=== PATIENT | male | born 1975 | race Two or more races ===

== ENCOUNTER 2018-08-29 22:40 | Emergency (ER) | payer SELFPAY ==
[~2018-08-29] VITALS: Ht 170.2 cm; Wt 90.7 kg
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
[2018-08-29 23:18] VITALS: BP 150/89
[2018-08-29] MEDS ORDERED: ACETAMINOPHEN-1 EAC1 ORAL (23:56)
[2018-08-29] MEDS ORDERED: IBUPROFEN600 MG ORAL (23:56)
[2018-08-30 00:04] VITALS: BP 140/80
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
== END 2018-08-30 | disposition home or self-care (01) ==
LOC: EMR 22:58
DX: S06.0X0A Concussion without loss of consciousness, initial encounter (principal); S00.81XA Abrasion of other part of head, initial encounter; Y08.89XA Assault by other specified means, initial encounter; Y92.9 Unspecified place or not applicable
CPT/HCPCS: 70450; 99284

== ENCOUNTER 2020-02-29 18:20 | Emergency (ER) | payer SELFPAY ==
[~2020-02-29] VITALS: Ht 167.6 cm; Wt 90.7 kg
[~2020-02-29 18:20] MED LIST: ACETAMINOPHEN-1 EAC1 ORAL; IBUPROFEN600 MG ORAL
--- NOTE | 2020-02-29 19:08 | NUR ---
ED Nurse Note: Pt walked into ED from tent outside. Pt came for insomniax3 nights. Pt also has stuffy nose, PA aware and states no need for iso right now. Pt BP 185/102, PA aware. Pt set up on monitor. Blood sent down to lab. Pt is alert and orientedx4, amb.
[2020-02-29 19:10] VITALS: BP 185/102
[2020-02-29 19:23] LABS: BASOPHILS % (AUTO) 1.3 % (0.0-2.0); EOSINOPHILS % (AUTO) 8.6 % (0.0-3.0); HEMATOCRIT 41.5 % (42.0-52.0); HEMOGLOBIN 12.5 G/DL (14.2-18.0); LYMPHOCYTES % (AUTO) 31.1 % (20.0-45.0); MEAN CORPUSCULAR VOLUME 60 FL (80-99); MONOCYTES % (AUTO) 6.4 % (1.0-10.0); NEUTROPHILS % (AUTO) 52.6 % (45.0-75.0); PLATELET COUNT 288 K/UL (150-450); RED BLOOD COUNT 6.96 M/UL (4.70-6.10); RED CELL DISTRIBUTION WIDTH 14.2 % (11.6-14.8); WHITE BLOOD COUNT 9.6 K/UL (4.8-10.8)
--- NOTE | 2020-02-29 19:41 | Emergency Room Report ---
History of Present Illness General Chief Complaint: Hypertension Source: Patient Present Illness HPI Patient is a 44-year-old male presents after increased nasal congestion as well as insomnia. Patient has history of insomnia in the past. He reports having nasal congestion over the past few days. Denies any cough. Denies any fever. Denies any sick contacts. Not been having any leg pain or swelling. Reports having elevated blood pressure on previous checks. Denies any chest discomfort. Reports having some shortness of breath. Allergies: Coded Allergies: No Known Allergies (Unverified , 08/29/18) COVID-19 Screening Contact w/high risk pt: No Recent Travel to affected area: No Experienced COVID-19 symptoms?: Yes COVID-19 symptoms experienced: Runny Nose Patient History Past Medical History: see triage record Reviewed Nursing Documentation: PMH: Agreed; PSxH: Agreed Nursing Documentation-PMH Past Medical History: No Stated History Review of Systems All Other Systems: negative except mentioned in HPI Physical Exam Vital Signs Date Time Temp Pulse Resp B/P (MAP) Pulse Ox O2 Delivery O2 Flow Rate FiO2 02/29/20 18:51 98.2 76 20 191/122 (145) 96 Room Air 02/29/20 19:10 99 Sp02 EP Interpretation: reviewed, normal General Appearance: normal inspection, well appearing, no apparent distress, alert, GCS 15 Head: atraumatic ENT: normal ENT inspection, hearing grossly normal, normal voice Neck: normal inspection, full range of motion, supple, no bony tend Respiratory: normal inspection, lungs clear, normal breath sounds, no respiratory distress, no retraction, no wheezing Cardiovascular #1: regular rate, rhythm, no edema Gastrointestinal: normal inspection, normal bowel sounds, non tender, soft, no guarding, no hernia Genitourinary: no CVA tenderness Musculoskeletal: normal inspection, back normal, normal range of motion Neurologic: alert, motor strength/tone normal, 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 Differential diagnosis include was not limited to hypertensive crisis, pneumonia, coronavirus infection, CHF among others. Because of complexity of patient's case laboratory tests and imaging studies were ordered. EKG interpreted by me showed normal sinus rhythm with a rate of [address] changes. Nonspecific T wave changes were noted. Patient is given medications for blood pressure. Patient noted to have improvement of blood pressure over time. Patient was reassessed and was noted to have improvement in symptoms. He was given prescription for Benadryl as well as for Norvasc. He is advised to monitor his blood pressure prior to taking medications. He was advised to return if worse. The patient is advised to follow up with primary care doctor in 1-2 days. Patient is advised to return if any worsening condition or if any changes in status that are concerning. This report is dictated with [employer] information and data architect analyst software which may occasionally lead to discrepancies related to use of this software. Labs Test 02/29/20 19:05 White Blood Count 9.6 K/UL (4.8-10.8) Red Blood Count 6.96 M/UL (4.70-6.10) Hemoglobin 12.5 G/DL (14.2-18.0) Hematocrit 41.5 % (42.0-52.0) Mean Corpuscular Volume 60 FL (80-99) Mean Corpuscular Hemoglobin 18.0 PG (27.0-31.0) Mean Corpuscular Hemoglobin Concent 30.2 G/DL (32.0-36.0) Red Cell Distribution Width 14.2 % (11.6-14.8) Platelet Count 288 K/UL (150-450) Mean Platelet Volume 9.0 FL (6.5-10.1) Neutrophils (%) (Auto) 52.6 % (45.0-75.0) Lymphocytes (%) (Auto) 31.1 % (20.0-45.0) Monocytes (%) (Auto) 6.4 % (1.0-10.0) Eosinophils (%) (Auto) 8.6 % (0.0-3.0) Basophils (%) (Auto) 1.3 % (0.0-2.0) Sodium Level 142 MMOL/L (136-145) Potassium Level 3.8 MMOL/L (3.5-5.1) Chloride Level 104 MMOL/L (98-107) Carbon Dioxide Level 28 MMOL/L (21-32) Anion Gap 10 mmol/L (5-15) Blood Urea Nitrogen 16 mg/dL (7-18) Creatinine 1.2 MG/DL (0.55-1.30) Estimat Glomerular Filtration Rate > 60 mL/min (>60) Glucose Level 88 MG/DL (74-106) Calcium Level 9.2 MG/DL (8.5-10.1) Total Bilirubin 0.3 MG/DL (0.2-1.0) Aspartate Amino Transf (AST/SGOT) 16 U/L (15-37) Alanine Aminotransferase (ALT/SGPT) 32 U/L (12-78) Alkaline Phosphatase 61 U/L (46-116) Troponin I 0.000 ng/mL (0.000-0.056) Pro-B-Type Natriuretic Peptide 11 pg/mL (0-125) Total Protein 7.8 G/DL (6.4-8.2) Albumin 3.9 G/DL (3.4-5.0) Globulin 3.9 g/dL Albumin/Globulin Ratio 1.0 (1.0-2.7) EKG Diagnostic Results Rate: normal Rhythm: NSR ST Segments: no acute changes Last Vital Signs Date Time Temp Pulse Resp B/P (MAP) Pulse Ox O2 Delivery O2 Flow Rate FiO2 02/29/20 19:22 71 179/118 02/29/20 19:10 98.2 18 99 Room Air 02/29/20 19:10 99 Status: improved Disposition: HOME, SELF-CARE Condition: Stable Scripts Amlodipine Besylate (Norvasc) 5 Mg Tablet 5 MG ORAL DAILY, #30 TAB Prov: Rell Nicole MD 02/29/20 Diphenhydramine Hcl (BENADRYL ALLERGY) 25 Mg Tablet 25 MG PO EVERY 6 HOURS, #30 TAB Prov: Rell Nicole MD 02/29/20 Rell Nicole MD Feb 29, 2020 19:41
[2020-02-29 19:44] LABS: ANION GAP 10 mmol/L (5-15); BLOOD UREA NITROGEN 16 mg/dL (7-18); CALCIUM 9.2 MG/DL (8.5-10.1); CARBON DIOXIDE 28 MMOL/L (21-32); CHLORIDE 104 MMOL/L (98-107); CREATININE 1.2 MG/DL (0.55-1.30); POTASSIUM 3.8 MMOL/L (3.5-5.1); SODIUM 142 MMOL/L (136-145)
[2020-02-29 19:55] LABS: ALANINE AMINOTRANSFERASE 32 U/L (12-78); ALBUMIN 3.9 G/DL (3.4-5.0); ALKALINE PHOSPHATASE 61 U/L (46-116); ASPARTATE AMINO TRANSFERASE 16 U/L (15-37); BILIRUBIN,TOTAL 0.3 MG/DL (0.2-1.0)
[2020-02-29] MEDS ORDERED: NORVASC5 MG ORAL (20:00)
[2020-02-29] MEDS ORDERED: BENADRYL ALLERG25 M1 PO (20:00)
[2020-02-29 20:40] VITALS: BP 140/90
--- NOTE | 2020-02-29 20:40 | NUR ---
ER DISCHARGE NOTE: Patient is cleared to be discharged per ERMD, pt is aox4, on room air, with stable vital signs. pt was given dc and prescription instructions, pt was able to verbalize understanding, pt id band and iv site removed without complications. pt is able to ambulate with steady gait. pt took all belongings.
--- NOTE | 2020-02-29 20:41 | Diagnostic Imaging Report ---
EXAM: XR Chest, 1 View CLINICAL HISTORY: SOB TECHNIQUE: Frontal view of the chest. COMPARISON: 03/06/06 FINDINGS: Lungs: Unremarkable. No consolidation. Pleural space: Unremarkable. No pneumothorax. Heart: Unremarkable. No cardiomegaly. Mediastinum: Unremarkable. Bones/joints: Unremarkable. IMPRESSION: 1. No acute cardiopulmonary disease. 2. If there is continued concern recommend frontal and lateral chest radiographs or CT.
== END 2020-02-29 20:40 | disposition home or self-care (01) ==
LOC: EMR 19:16
DX: I10 Essential (primary) hypertension (principal); J30.2 Other seasonal allergic rhinitis; G47.00 Insomnia, unspecified
CPT/HCPCS: 36415; 71045; 80053; 83880; 84484; 85025; 93005; 99283

== ENCOUNTER 2020-06-16 14:50 | Emergency (ER) | payer SELFPAY ==
[~2020-06-16] VITALS: Ht 167.6 cm; Wt 90.7 kg
[~2020-06-16 14:50] MED LIST changes: +BENADRYL ALLERG25 M1 PO; +NORVASC5 MG ORAL
--- NOTE | 2020-06-16 15:05 | NUR ---
ED Nurse Note: pt wheeled in to ER d/t LT ankle pain with swelling and redness, s/p fall today an hour ago at home. Pt also complains of LT knee pain. (-) loss of consiouness, (-) head trauma. Pt is AOx4, calm and cooperative, VSS, on RA, afebrile on triage.
--- NOTE | 2020-06-16 15:09 | Emergency Room Report ---
History of Present Illness General Chief Complaint: Lower Extremity Injury Source: Patient Present Illness HPI Disclaimer: Please note that this report is being documented using [employer] technology. This can lead to erroneous entry secondary to incorrect interpretation by the dictating instrument. HPI: 44-year-old male presents for evaluation of left ankle and knee pain after an injury. The patient states he slipped on wet stairs calling to fall forward twisting his left ankle and it impacting his left knee. There is no head injury no loss conscious no other injury reported. He applied ice for approximately 30 minutes and wrapped it with compression bandage. He notes pain over the lateral aspect of the ankle and pain in the lateral aspect of the left knee when bearing weight. Denies swelling in the knee. Reported moderate swelling in the left ankle but this is improving after Sixto bandage was applied. Denies medical history. No other injury reported. 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 EOMI. Resp: Normal work of breathing Skin: Intact. No abrasions, laceration or rash over the exposed skin MSK: Normal tone and bulk. Moving all extremities. No obvious deformity. Left talus anatomic position nontender. Moderate tenderness over the proximal fibula without deformity. No laxity in joint. No effusion. There is tenderness over the posterior aspect of the lateral malleolus of the left ankle. No tenderness over the medial malleolus or in the midfoot. Able to dorsiflex and plantarflex the somewhat limited by pain. Brisk PT and DP pulses bilaterally. Neuro: Awake and alert. Mentating appropriately Medical Decision Making Diagnostic Impression: Primary Impression: Ankle sprain Additional Impression: Knee contusion ER Course Is a 44-year-old male presenting for evaluation of left ankle and knee pain after a fall. No fracture appreciated on x-rays of the knee and ankle. Likely an ankle sprain and knee contusion. Sixto wrap was applied and patient was treated with NSAIDs. He will be discharged with additional pain medication and discussed rice healing routine for ankle sprain. We will follow-up with his PMD for referral to orthopedics as needed. Discussed reasons to return to the ED. He understands and agrees with this treatment plan. Other X-Ray Diagnostic Results Other X-Ray Diagnostic Results #1: X-Ray ordered: Left knee # of Views/Limited Vs Complete: Complete Indication: Pain PA Xray: Interpretation reviewed Interpretation: no dislocation, no soft tissue swelling, no fractures Impression: No acute disease Electronically Signed by: Electronically signed by Dr. Kwan Marks Other X-Ray Diagnostic Results #2: X-Ray ordered: Left ankle # of Views/Limited Vs Complete: Complete Indication: Pain EP Interpretation: Yes Interpretation: no dislocation, no soft tissue swelling, no fractures Impression: No acute disease Electronically Signed by: Electronically signed by Dr. Kwan Marks Last Vital Signs Date Time Temp Pulse Resp B/P (MAP) Pulse Ox O2 Delivery O2 Flow Rate FiO2 06/16/20 14:54 98.4 93 19 155/110 (125) 96 Room Air Disposition: HOME, SELF-CARE Condition: Stable Scripts Hydrocodone Bit/Acetaminophen 5-325* (NORCO 5-325 TABLET*) 1 Each Tablet 1 TAB ORAL Q6H PRN for FOR PAIN, #10 TAB 0 Refills Prov: Kwan Marks MD 06/16/20 Ibuprofen* (MOTRIN*) 600 Mg Tablet 600 MG ORAL Q6H PRN for For Pain, #30 TAB 0 Refills Prov: Kwan Marks MD 06/16/20 Kwan Marks MD Jun 16, 2020 15:09
[2020-06-16] MEDS ORDERED: IBUPROFEN600 M1 ORAL (15:17)
[2020-06-16] MEDS ORDERED: NORCO 5-325 TA1 EAC1 ORAL (15:28)
[2020-06-16 15:35] VITALS: BP 145/98
--- NOTE | 2020-06-16 15:35 | NUR ---
ED Nurse Note:nyla wrap was placed on left ankle Pt cleared by health care Provider for discharge. DC instructions/prescription was given and explained to pt and verbalized understanding of teachings. All medical deviecs such as ID band removed. Pt is AAO x4, ambulatory and left with all personal belongings.
--- NOTE | 2020-06-16 17:30 | Diagnostic Imaging Report ---
Indication: Trauma, pain Technique: 3 views of the left knee Comparison: None Findings: No acute fractures. No dislocations. No suprapatellar effusions. Joint spaces are preserved Impression: Negative
--- NOTE | 2020-06-16 17:55 | Diagnostic Imaging Report ---
Indication: Trauma, pain Technique: 3 views of the left ankle Comparison: none Findings: No acute fractures. No dislocations. The joint spaces are preserved Impression: Negative
== END 2020-06-16 15:40 | disposition home or self-care (01) ==
LOC: EMR 15:00
DX: S93.402A Sprain of unspecified ligament of left ankle, initial encounter (principal); S80.02XA Contusion of left knee, initial encounter; W10.9XXA Fall (on) (from) unspecified stairs and steps, initial encounter; Y92.9 Unspecified place or not applicable
CPT/HCPCS: 99283